=== PATIENT | female | born 1955 | race Caucasian/White ===

== ENCOUNTER 2018-05-19 01:35 | Emergency (ER) | payer SELFPAY ==
[~2018-05-19] VITALS: Ht 160 cm; Wt 59.0 kg
[2018-05-19 01:35] VITALS: BP 189/77
[2018-05-19] MEDS ORDERED: LORazepam 2 MG/ML VIAL IVP ONE (01:50)
[2018-05-19] MEDS ORDERED: MECLIZINE 25 MG TAB PO ONE (01:50)
[2018-05-19] MEDS ORDERED: ONDANSETRON 4 MG/2 ML VIAL IVP ONE (01:50)
[2018-05-19 02:03] LABS: BASOPHILS % (AUTO) 0.6 % (0.0-2.0); EOSINOPHILS # (AUTO) 0.3 K/uL (0-0.4); EOSINOPHILS % (AUTO) 4.6 % (0.0-4.0); HEMATOCRIT 39.7 % (36-48); HEMOGLOBIN 13.4 g/dL (12.0-16.0); LYMPHOCYTES # (AUTO) 1.3 K/uL (2.5-16.5); LYMPHOCYTES % (AUTO) 20.8 % (20.5-51.1); MEAN CORPUSCULAR HEMOGLOBIN 31 pg (27-31); MEAN CORPUSCULAR HGB CONC 34 g/dL (33-37); MEAN CORPUSCULAR VOLUME 90.7 fL (80-94); NEUTROPHILS # (AUTO) 3.6 K/uL (1.8-7.7); NEUTROPHILS % (AUTO) 57.6 % (42.2-75.2); PLATELET COUNT (AUTO) 231 K/uL (140-450); RED BLOOD CELL COUNT(AUTO) 4.37 MIL/uL (4.20-5.40); RED CELL DISTRIBUTION WIDTH 14.1 % (11.6-13.7); WHITE BLOOD COUNT (AUTO) 6.2 K/uL (4.8-10.8)
[2018-05-19 02:20] LABS: MONOCYTES % (AUTO) 16.4 % (1.7-9.3)
[2018-05-19 02:29] LABS: PROTHROMBIN TIME 9.9 secs (10.8-13.4)
[2018-05-19 02:30] LABS: ALBUMIN 4.2 g/dL (3.4-5.0); ANION GAP 13.2 (8-16); CARBON DIOXIDE 28.3 mmol/L (21-32); CREATININE 0.7 mg/dL (0.6-1.3); POTASSIUM 3.5 mmol/L (3.5-5.1); TOTAL BILIRUBIN 0.3 mg/dL (0.0-1.0)
[2018-05-19 03:32] VITALS: BP 117/59
== END 2018-05-19 03:30 | disposition home or self-care (01) ==
LOC: MED 01:35
DX: R42 Dizziness and giddiness (principal); I10 Essential (primary) hypertension
CPT/HCPCS: 36415; 70450; 71045; 80053; 84484; 85025; 85610; 85730; 96374; 96375; 99285; J2060; J2405; J8597; Q0092